=== PATIENT | female | born 1965 | race African-American/Black ===

== ENCOUNTER 2016-08-06 20:04 | Emergency (ER) | payer BC ==
[~2016-08-06] VITALS: Ht 175.3 cm; Wt 94.5 kg
[2016-08-06 21:10] VITALS: Ht 175.3 cm; Wt 94.5 kg
[2016-08-06] MEDS ORDERED: ACET500C5 PO (21:22)
[2016-08-06] MEDS ORDERED: CYCL-319 PO (21:22)
[2016-08-06] MEDS ORDERED: HYDR-906 PO (21:22)
[2016-08-06] MEDS ORDERED: [UNRECOGNIZED DRUG - OTHER] (21:28)
[2016-08-06] MEDS ORDERED: CETI10CA PO (21:28)
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
== END 2016-08-06 21:24 | disposition home or self-care (01) ==
LOC: E/R 20:04
DX: S80.11XA Contusion of right lower leg, initial encounter (principal); S00.03XA Contusion of scalp, initial encounter; S16.1XXA Strain of muscle, fascia and tendon at neck level, initial encounter; E11.9 Type 2 diabetes mellitus without complications; J45.909 Unspecified asthma, uncomplicated; V49.50XA Passenger injured in collision with unspecified motor vehicles in traffic accident, initial encounter; Z79.84 Long term (current) use of oral hypoglycemic drugs
CPT/HCPCS: 99284